=== PATIENT | female | born 1960 | race Caucasian/White ===

== ENCOUNTER 2019-05-03 10:33 | Emergency (ER) | payer SELFPAY ==
[2019-05-03] MEDS ORDERED: Lidocaine 1% w/Epinephrine 1:100K 20 ML VIAL ONE (12:03)
[2019-05-03] MEDS ORDERED: Adacel (T-DAP) 0.5 ML SYRINGE ONE (12:28)
[2019-05-03] MEDS ORDERED: Ketorolac Tromethamine 30 MG/ML VIAL ONE (12:36)
--- NOTE | 2019-05-03 12:41 | CT ---
CT Brain WO Con History: Fall Comparison: None. Findings: No acute hemorrhage or infarct. No midline shift or mass effect. Left frontal scalp a cutan eous gas, laceration, with skin simone. The underlying calvarium is intact. Paranasal sinuses and mastoids are clear. Impression: Left frontal scalp laceration without acute posttraumatic intracranial sequelae. Subtle right superior eyelid superficial calcifications.
--- NOTE | 2019-05-03 12:44 | CT ---
CT Cervical Spine WO Con History: Fall Comparison: None. Findings: The occipital condyles are intact. The odontoid process is intact. Mild degenerative disc s pace disease C5-C7. High-grade facet arthropathy on the left C7/T1. No acute fracture or malalignment of the cervical spine. No acute rheumatic facet joint widening. Tra nsverse processes are intact. Lung apices are clear. Paraspinal soft tissues are unremarkable. Spinous processes are intact. Impression: No acute fracture or malalignment of the cervical spine.
--- NOTE | 2019-05-03 12:49 | CT ---
CT Facial Bones WO Con History: Fall Comparison: None. Findings: Upper cervical spine is intact. Clivus is intact. Superficial right superior eyelid appear to be calcifications. The globes are intact. No retrobulbar hematoma. The zygoma, zygomatic arches, pterygoid plates, medial orbital hensley, lateral orbital hensley, orbital roofs, orbital floors are intact. Mild mucosal sinus thickening of both maxillary sinuses. The mandible is intact. There are erosions round numerous teeth as well as numerous dental cavities. Chronic appearing fracture of the right frontal process of the maxilla. Chronic left-sided osseous nasal septal spur nearly abutting the mucosal surface between the inferior and middle turbinates. Impression: 1. No acute fracture of the face. 2. Small soft tissue laceration along the right undersurface of the chin. 3. Numerous cavities with large erosion along the root of the right mandibular second premolar and fi rst molar eroding to the buccal surface.
[2019-05-03] MEDS ORDERED: Bacitracin 1 PK ONE (13:09)
== END 2019-05-03 13:12 | disposition home or self-care (01) ==
LOC: ERS 10:33
DX: S01.01XA Laceration without foreign body of scalp, initial encounter (principal); S01.81XA Laceration without foreign body of other part of head, initial encounter; E03.9 Hypothyroidism, unspecified; F20.9 Schizophrenia, unspecified; Z79.899 Other long term (current) drug therapy; Z23 Encounter for immunization; W10.9XXA Fall (on) (from) unspecified stairs and steps, initial encounter
CPT/HCPCS: 12002; 12011; 70450; 70486; 72125; 90471; 90715; 93005; J1885

== ENCOUNTER 2019-05-13 10:07 | Emergency (ER) | payer SELFPAY | END 2019-05-13 10:36 | disposition home or self-care (01) | LOC: ERS 10:07 | DX: S01.01XD Laceration without foreign body of scalp, subsequent encounter (principal); S01.81XD Laceration without foreign body of other part of head, subsequent encounter; E03.9 Hypothyroidism, unspecified; F20.9 Schizophrenia, unspecified; W10.9XXD Fall (on) (from) unspecified stairs and steps, subsequent encounter ==

== ENCOUNTER 2020-12-25 | Inpatient (IN) | payer SELFPAY | END 2020-12-28 18:15 | disposition home or self-care (01) | DRG 643 | PROVIDERS: ADMIT Internal Medicine ==